=== PATIENT | male | born 1990 | race Caucasian/White ===

== ENCOUNTER 2017-04-13 11:33 | Emergency (ER) | payer MEDICAID ==
[~2017-04-13] VITALS: Ht 165.1 cm; Wt 90.0 kg
[2017-04-13 11:38] VITALS: Ht 165.1 cm; Wt 90.0 kg
[2017-04-13] MEDS ORDERED: LIDOCAINE 1% (MDV) 10 ML INJ INJ STA (11:54)
--- NOTE | 2017-04-13 11:58 | ERD ---
ER Documentation Chief Complaint Date/Time DATE: 04/13/17 TIME: 11:56 Chief Complaint left ingrown toe nail HPI Patient is a 27-year-old male who has ingrown toenail on the left big toe. He has had pain and swelling and some drainage from it. This is been going on for 1 month. No fever. Patient is ambulatory. ROS All systems reviewed and are negative except as per history of present illness. Medications Home Meds Active Scripts Ibuprofen* (Motrin*) 800 Mg Tab, 800 MG PO Q6, #30 TAB Prov:NAPOLEON VIVAR PA-C 04/13/17 Cephalexin* (Keflex*) 500 Mg Capsule, 500 MG PO Q6, #28 CAP Prov:NAPOLEON VIVAR PA-C 04/13/17 Sulfamethoxazole/Trimethoprim* (Bactrim Ds* Tablet) 1 Each Tablet, 1 TAB PO BID for 7 Days, TAB Prov:NAPOLEON VIVAR PA-C 04/13/17 FmHx Family History: No diabetes Physical Exam Vitals Vital Signs Date Time Temp Pulse Resp B/P Pulse Ox O2 Delivery O2 Flow Rate FiO2 04/13/17 11:38 98.1 79 18 140/78 99 Physical Exam INITIAL VITAL SIGNS: Reviewed by me GENERAL: Awake, alert and oriented x 4, well appearing, nontoxic, speaking in full sentences. No acute distress NECK: Supple. No masses. Full range of motion. No meningismus. No midline tenderness. RESPIRATORY: Clear to auscultation bilaterally. Symmetric chest wall rise. No wheezing or rales. No accessory muscle use. CV: Regular rate and rhythm. No murmurs, rubs, or gallops. EXTREMITIES: Left foot great toe has ingrown nail on both the lateral and medial aspect of the toe, scant drainage, no erythema, pedal pulse 2+, no bony abnormalities, capillary refill, sensation to light touch is intact Results 24 hrs Current Medications Medications (Trade) Dose Ordered Sig/Irena Route PRN Reason Start Time Stop Time Status Last Admin Dose Admin Lidocaine HCl (Lidocaine 1% (Mdv) 10 ml) 10 ml ONCE STAT INJ 04/13/17 11:54 04/13/17 11:56 DC Procedures/MDM 27-year-old male presents with ingrown toenail. His toe was prepped with Betadine and a digital block using 1% lidocaine was used to anesthetize the toe. I then removed a sliver of both the lateral and medial aspect of the toe to alleviate the ingrown portion. Patient tolerated the procedure well and there were no complications. The wound was appropriately dressed and bandaged and he was given a prescription for Bactrim and Keflex. Patient counseled regarding my diagnostic impression and care plan. Prior to discharge all questions answered. Pt agrees with treatment plan and understands strict return precautions. Pt is instructed to follow up with primary care provider within 24- 48 hours. Precautionary instructions provided including instructions to return to the ER if not improving or for any worsening or changing symptoms or concerns. Departure Diagnosis: Primary Impression: Ingrown toenail Condition: Stable NAPOLEON VIVAR PA-C Apr 13, 2017 11:58
[2017-04-13] MEDS ORDERED: SULF1TAB31 PO (12:29)
[2017-04-13] MEDS ORDERED: CEPH-443 PO (12:29)
[2017-04-13] MEDS ORDERED: IBUP800T25 PO (12:30)
== END 2017-04-13 13:23 | disposition home or self-care (01) ==
LOC: FTE 11:33
DX: L60.0 Ingrowing nail (principal)
CPT/HCPCS: Z7502; Z7610